=== PATIENT | male | born 1955 | race Caucasian/White ===

== ENCOUNTER 2020-02-26 18:44 | Emergency (ER) | payer MEDICARE ==
[~2020-02-26] VITALS: Ht 172.7 cm; Wt 68.2 kg
[2020-02-26 19:12] VITALS: Ht 172.7 cm; Wt 68.2 kg
[2020-02-26] MEDS ORDERED: LISINOPRIL2.5 MG PO (19:13)
[2020-02-26] MEDS ORDERED: MUPIROCIN22 GM TOPICAL (21:27)
[2020-02-26 21:37] VITALS: BP 126/80
== END 2020-02-26 21:32 | disposition home or self-care (01) ==
LOC: D.ER 18:44
DX: T14.8XXA Other injury of unspecified body region, initial encounter (principal); W57.XXXA Bitten or stung by nonvenomous insect and other nonvenomous arthropods, initial encounter; Y93.9 Activity, unspecified; Y92.9 Unspecified place or not applicable; I10 Essential (primary) hypertension

== ENCOUNTER 2020-03-20 07:46 | Day surgery (SDC) | payer MEDICARE, OTHER ==
[~2020-03-20] VITALS: Ht 171.4 cm; Wt 64.9 kg
[~2020-03-20 07:46] MED LIST: LISINOPRIL2.5 MG PO; MUPIROCIN22 GM TOPICAL
[2020-03-20 08:31] LABS: BASOPHILS 0.9 % (0-2); EOSINOPHILS 6.6 % (0-7); HEMATOCRIT 45.6 % (42.0-54.0); HEMOGLOBIN 15.4 g/dL (13.5-17.5); IMMATURE GRANULOCYTES 0.2 % (0-5); LYMPHOCYTES 27.7 % (15-50); MCH 32.9 pg (26.0-34.0); MCHC 33.8 g/dL (31.0-37.0); MCV 97.4 fL (80.0-100.0); MEAN PLATELET VOLUME 9.5 fL (7.4-10.4); MONOCYTES 9.1 % (2-11); NEUTROPHILS 55.5 % (40-80); PLATELET COUNT 179 10x3/uL (130-400); RBC 4.68 10x6/uL (4.20-6.10); RDW 12.1 % (11.5-14.5); WBC 4.5 10x3/uL (4.8-10.8)
[2020-03-20 08:44] LABS: CALC OSMOLALITY 282 mosm/kg (275-300); CALCIUM 8.7 mg/dL (8.5-10.1); CARBON DIOXIDE 30.2 mmol/L (21.0-32.0); CHLORIDE - SERUM 108 mmol/L (98-107); CREATININE - SERUM 0.9 mg/dL (0.6-1.3); GLUCOSE 94 mg/dL (74-106); SODIUM 142 mmol/L (136-145); UREA NITROGEN 13 mg/dL (7-18); eGFR NON AFRICAN AMERICAN 90 mL/min (90-120)
[2020-03-20 09:20] VITALS: BP 145/87; Ht 171.4 cm; Wt 64.9 kg
--- NOTE | 2020-03-25 00:03 | OP ---
PATIENT NAME: CHAPARRO CISSE MEDICAL RECORD: [id number] :51 LOCATION:D.OPS ADMISSION DATE: SURGEON: DOMINGO BARBA MD DATE OF OPERATION: 03/20/2020 PREOPERATIVE DIAGNOSIS: Symptomatic right inguinal hernia. POSTOPERATIVE DIAGNOSIS: Symptomatic right indirect non-incarcerated inguinal hernia. PROCEDURES: Right indirect inguinal hernia repair with bilayered preperitoneal polypropylene mesh. SURGEON: Domingo Barba MD EQUALIZING SAW OPERATOR: Ravi Diaz, library media technician. BLOOD LOSS: Minimal. ANESTHESIA: General. COMPLICATIONS: None. The risks, possible complications, and alternatives to the procedure were explained to the patient. He elects to proceed. The discussion specifically included, but was not limited to, bleeding requiring emergency reoperation, infection, chronic pain, injury to the testicular artery or vein. OPERATIVE COURSE: The patient was conveyed to the operating room electively on 03/20/2020. General anesthesia was induced by the anesthesia staff. The abdomen and genitals were sterilely prepped and draped. A transverse incision was accomplished in the right groin. Sharp dissection was carried down through skin and subcutaneous tissue as well as Patrice fascia. The external oblique aponeurosis was then cleaned of overlying connective tissue. External oblique aponeurosis was then incised along the direction of its fibers. I bluntly dissected down through the internal oblique and transversus abdominis muscles. A preperitoneal pocket was fashioned bluntly. An indirect hernia was reduced. I entered the hernia sac. There was no sliding component. I noted no bladder within the hernia. The hernia sac was ligated highly with a pursestring suture of 3-0 Vicryl. I then transected the sac distal to this. I then cut 2 ovals out of a polypropylene mesh. The 2 ovals were sutured together one on top of the other with a running #1 Surgidac. The mesh was placed in the preperitoneal space. Once I was satisfied with placement of the mesh, I allowed the muscular layers to come together. The internal oblique and transversus abdominis muscles were then closed with a horizontal mattress 0 Surgidacs incorporating a portion of the underlying mesh with the sutures. The external oblique aponeurosis was closed with running #1 Vicryls. Patrice fascia was approximated with interrupted 3-0 Vicryls. The subdermis was approximated with interrupted 3-0 Vicryls. The skin was approximated with a running intracuticular 4-0 Vicryl. Benzoin and Steri-Strips were applied. The patient was then extubated and conveyed to post-anesthesia care unit where OPERATIVE REPORT [id number] CHAPARRO CISSE SERA he was in stable condition. He will be dismissed home on [place] as well as [place]. I will see him in the office in 2-3 weeks. TRANSINT:[id number] Voice Confirmation ID: [id number] DOCUMENT ID: [id number] DOMINGO BARBA MD at 0003 CC: [id number] DICTATION DATE: 03/20/20 1134 TIE UP WORKER: 03/20/20 [id number] [facility] [place] 03/20/20 [id number] [place] [address]
== END 2020-03-20 14:00 | disposition home or self-care (01) ==
LOC: D.OPS 07:46 → D.PAN 08:45 → D.OPS 09:30 → D.PAN 11:00 → D.OPS 11:00
PROVIDERS: ATTEND Surgery
DX: K40.90 Unilateral inguinal hernia, without obstruction or gangrene, not specified as recurrent (principal)